=== PATIENT | female | born 1930 | race Two or more races ===

== ENCOUNTER 2019-03-03 10:56 | Outpatient (CLI) | payer OTHER ==
[~2019-03-03 10:56] MED LIST: ATENOLOL25 GM; CLONAZEPAM0.5 MG PO; SYNTHROID50 MCG; ZYRTEC10 MG PO
== END 2019-03-03 11:02 | disposition home or self-care (01) ==
LOC: SONOGRAMA 10:56
DX: M17.0 Bilateral primary osteoarthritis of knee (principal); M65.811 Other synovitis and tenosynovitis, right shoulder; M19.041 Primary osteoarthritis, right hand; M19.042 Primary osteoarthritis, left hand

== ENCOUNTER 2020-08-30 13:05 | Emergency (ER) | payer OTHER ==
[~2020-08-30] VITALS: Ht 154.9 cm; Wt 45.4 kg
[2020-08-30] MEDS ORDERED: TENORMIN25 MG (13:25)
[2020-08-30] MEDS ORDERED: CLONAZEPAM0.125 MG (13:26)
[2020-08-30] MEDS ORDERED: TIROSINT25 MCG (13:26)
[2020-08-30] MEDS ORDERED: CRESTOR5 MG (13:27)
== END 2020-08-30 23:09 | disposition home or self-care (01) ==
LOC: ER
DX: K59.09 Other constipation (principal); R63.0 Anorexia; Z03.818 Encounter for observation for suspected exposure to other biological agents ruled out